=== PATIENT | female | born 1995 | race American Indian/Alaskan Native ===

== ENCOUNTER 2016-09-02 21:40 | Emergency (ER) | payer OTHER ==
[2016-09-02 21:41] VITALS: BMI 18.0
--- NOTE | 2016-09-03 00:06 | C.PDOC ---
History Of Present Illness Patient is a 21 year old female who presents to the ER with a complaint of diffuse abdominal discomfort and cramping; associated with a fever of 101 and mild nausea. Patient reports she is and has her first appoint in 2 weeks; LMP was on 07/19. Denies vaginal bleeding, vaginal discharge, vomiting, or diarrhea. Time Seen by Provider: 09/02/16 23:32 Chief Complaint (Nursing): Fever History Per: Patient History/Exam Limitations: no limitations Onset/Duration Of Symptoms: Hrs Current Symptoms Are (Timing): Still Present Location Of Pain/Discomfort: Diffuse Radiation Of Pain To:: None Quality Of Discomfort: Cramping Associated Symptoms: Nausea. denies: Vomiting, Diarrhea, Other (Vaginal discharge) Exacerbating Factors: None Alleviating Factors: None Recent travel outside of the [place]: No Abnormal Vaginal Bleeding: No Last Menstral Period: 07/19 Past Medical History Reviewed: Historical Data, Nursing Documentation, Vital Signs Vital Signs: Last Vital Signs Temp 99.2 F 09/02/16 22:27 Pulse 111 H 09/02/16 22:27 Resp 16 09/02/16 22:27 BP 111/70 09/02/16 22:27 Pulse Ox 100 09/03/16 00:11 - Medical History PMH: No Chronic Diseases Surgical History: No Surg Hx Family History: States: Unknown Family Hx - Social History Hx Alcohol Use: No Hx Substance Use: No - Immunization History Hx Tetanus Toxoid Vaccination: No Hx Influenza Vaccination: No Hx Pneumococcal Vaccination: No Review Of Systems Gastrointestinal: Positive for: Nausea, Abdominal Pain. Negative for: Vomiting , Diarrhea Genitourinary: Negative for: Vaginal Discharge, Vaginal Bleeding Physical Exam - Physical Exam Appears: Non-toxic Skin: Normal Color, Warm, Dry Head: Atraumatic, Normacephalic Oral Mucosa: Moist Chest: Symmetrical, No Tenderness Cardiovascular: Rhythm Regular, No Murmur Respiratory: Normal Breath Sounds, No Rales, No Rhonchi, No Wheezing Gastrointestinal/Abdominal: Soft, Tenderness (Mildly diffuse), No Guarding, No Rebound Neurological/Psych: Oriented x3, Normal Speech, Normal Cognition ED Course And Treatment O2 Sat by Pulse Oximetry: 100 (Room air) Pulse Ox Interpretation: Normal Interpretation Of Abnormal: Blood work, urinalysis, and transvaginal US ordered. Disposition - Disposition Disposition Time: 00:40 Condition: STABLE - Clinical Impression Clinical Impression: Abdominal pain, Fever, - Scribe Statement The provider has reviewed the documentation as recorded by the Scribe Vinicio Powers All medical record entries made by the Tangelaibe were at my direction and personally dictated by me. I have reviewed the chart and agree that the record accurately reflects my personal performance of the history, physical exam, medical decision making, and the department course for this patient. I have also personally directed, reviewed, and agree with the discharge instructions and disposition. Physician Patient Turnover Patient Signed Over To: Gopi Johnson Handoff Comments: Pending labs and ultrasound
[2016-09-03 00:46] LABS: BASO % 0.4 % (0.0-2.0); EOS # 0.2 K/uL (0.0-0.7); EOS % 1.8 % (0.0-4.0); HEMOGLOBIN 11.2 g/dL (11.0-16.0); LYMPH # 2.1 K/uL (1.0-4.3); LYMPH % 25.1 % (20.0-40.0); MEAN CELL VOLUME 76.6 fL (81.0-99.0); MEAN CORPUSCULAR HEMOGLOBIN 24.4 pg (27.0-31.0); MEAN CORPUSCULAR HGB CONC 31.9 g/dL (33.0-37.0); MEAN PLATELET VOLUME 7.7 fL (7.2-11.7); MONO # 0.7 K/uL (0.0-0.8); MONO % 8.4 % (0.0-10.0); NEUT # 5.4 K/uL (1.8-7.0); NEUT % 64.3 % (50.0-75.0); RBC 4.57 Mil/uL (3.80-5.20); RED CELL DISTRIBUTION WIDTH 14.2 % (11.5-14.5); WHITE BLOOD COUNT 8.4 K/uL (4.8-10.8)
[2016-09-03 00:48] LABS: SQUAMOUS EPITHIAL 2 /hpf (0-5); URINE BACTERIA OCC (<OCC); URINE BILIRUBIN NEGATIVE (NEGATIVE); URINE BLOOD 1+ (NEGATIVE); URINE CLARITY Clear (Clear); URINE COLOR Yellow (YELLOW); URINE GLUCOSE (UA) NORMAL (Normal); URINE LEUKOCYTE ESTERASE NEG Leu/uL (Negative); URINE NITRATE NEGATIVE (NEGATIVE); URINE PROTEIN NEGATIVE (NEGATIVE); URINE UROBILINOGEN NORMAL mg/dL (0.2-1.0)
[2016-09-03 01:19] LABS: ALBUMIN 3.7 g/dL (3.5-5.0)
[2016-09-03 01:22] LABS: ALB/GLOB RATIO 1.2 (1.0-2.1); ALT/SGPT 7 U/L (9-52); AST/SGOT 15 U/L (14-36); BLOOD UREA NITROGEN 7 mg/dL (7-17); GFR AFRICAN-AMERICAN > 60; GFR NON-AFRICAN AMERICAN > 60
[2016-09-03 01:23] LABS: CALCIUM 8.7 mg/dl (8.6-10.4)
[2016-09-03] MEDS ORDERED: Sodium Chloride 0.9% 1,000 ML IV ONE (01:26)
--- NOTE | 2016-09-03 03:18 | US ---
EXAM: US , Transvaginal CLINICAL HISTORY: 21 years old, female; Pain; complicated by abdominal or pelvic pain; Generalized abdominal pain; First trimester; Gestational age or lmp: 07/19/2016; ; Additional info: Abdominal pain and fever TECHNIQUE: Real-time transvaginal obstetrical ultrasound of the maternal pelvis and a first trimester with image documentation. Transvaginal imaging was used for better evaluation of the fetus and adnexa. EXAM DATE/TIME: 09/03/2016 2:30 AM COMPARISON: No relevant prior studies available. FINDINGS: The uterus measures 8 x 5 x 6 cm. The cervix measures 3.1 cm. There is an intrauterine gestational sac containing a yolk sac and pole. Measurements correspond to a gestational age of 7 weeks 3 days. A heart rate of 130 beats per minute was obtained. A 2 cm corpus luteum cyst is present in the maternal right ovary. The maternal left ovary is normal. Color flow and doppler vascular waveforms were demonstrated to both maternal ovaries. A small amount of free fluid is present. IMPRESSION: Single live IUP.
[2016-09-03 03:59] VITALS: BP 110/70; PULSE 82; RESP 14; TEMP 99; O2SAT 99
== END 2016-09-03 03:59 | disposition home or self-care (01) ==
LOC: C.ER 21:40
DX: O23.41 Unspecified infection of urinary tract in pregnancy, first trimester (principal); Z3A.01 Less than 8 weeks gestation of pregnancy; R50.81 Fever presenting with conditions classified elsewhere
CPT/HCPCS: 76817; 80053; 81001; 84702; 85025; 87086; 96361; 96374; 99285; J2405; J7040

== ENCOUNTER 2016-11-29 19:30 | Emergency (ER) | payer OTHER ==
[2016-11-29 19:30] VITALS: BMI 18.0
--- NOTE | 2016-11-29 20:01 | C.PDOC ---
History Of Present Illness 21 year old female who is 19 weeks , P:0 A:1, presents to the ER with a complaint of LUQ abdominal pain for the past 8 hours. Patient states prior US results show a normal ; she reports the pain is mild but she wants to make sure her baby is okay. Denies fever, chills, or vomiting. Time Seen by Provider: 11/29/16 19:43 Chief Complaint (Nursing): Abdominal Pain History Per: Patient History/Exam Limitations: no limitations Onset/Duration Of Symptoms: Hrs Current Symptoms Are (Timing): Still Present Location Of Pain/Discomfort: LUQ Radiation Of Pain To:: None Quality Of Discomfort: Unable To Describe Associated Symptoms: denies: Fever, Chills, Nausea, Vomiting Exacerbating Factors: None Alleviating Factors: None Recent travel outside of the [place]: No Abnormal Vaginal Bleeding: No : 2 Para: 0 Miscarriage: 1 Past Medical History Reviewed: Historical Data, Nursing Documentation, Vital Signs Vital Signs: Last Vital Signs Temp 98.5 F 11/29/16 19:33 Pulse 117 H 11/29/16 19:33 Resp 20 11/29/16 19:33 BP 131/73 11/29/16 19:33 Pulse Ox 100 11/29/16 20:23 - Medical History PMH: No Chronic Diseases Surgical History: Cholecystectomy Family History: States: Unknown Family Hx - Social History Hx Alcohol Use: No Hx Substance Use: No - Immunization History Hx Tetanus Toxoid Vaccination: No Hx Influenza Vaccination: No Hx Pneumococcal Vaccination: No Review Of Systems Constitutional: Negative for: Fever, Chills Gastrointestinal: Positive for: Abdominal Pain. Negative for: Nausea, Vomiting Genitourinary: Negative for: Dysuria Physical Exam - Physical Exam Appears: Non-toxic, No Acute Distress, Other (Thin black female) Skin: Normal Color, Warm, Dry Head: Atraumatic, Normacephalic Oral Mucosa: Moist Chest: Symmetrical, No Tenderness Cardiovascular: Rhythm Regular Respiratory: Normal Breath Sounds, No Rales, No Rhonchi, No Wheezing Gastrointestinal/Abdominal: Soft, No Tenderness, Other (Gravid) Pelvic: Adnexal Tenderness (Left) Neurological/Psych: Oriented x3, Normal Speech, Normal Cognition ED Course And Treatment - Laboratory Results Result Diagrams: 11/29/16 20:11 11/29/16 20:11 Lab Interpretation: Normal (ua neg., FHT 160's) O2 Sat by Pulse Oximetry: 100 (Room air) Pulse Ox Interpretation: Normal Progress Note: Blood work and urinalysis ordered. Reevaluation Time: 20:59 Reassessment Condition: Improved (belly remains benign) Medical Decision Making Medical Decision Makinnd , @ 19 wks, FHT's wnl L inguinal discomfort prob Round Ligament vs constipation normal labs/UA Disposition Doctor Will See Patient In The: Office Counseled Patient/Family Regarding: Studies Performed, Diagnosis - Disposition Disposition: HOME/ ROUTINE Disposition Time: 21:02 Condition: GOOD Forms: [employer] ([employer]) - Clinical Impression Clinical Impression: , Abdominal discomfort - Scribe Statement The provider has reviewed the documentation as recorded by the Scribe Vinicio Powers All medical record entries made by the Scribe were at my direction and personally dictated by me. I have reviewed the chart and agree that the record accurately reflects my personal performance of the history, physical exam, medical decision making, and the department course for this patient. I have also personally directed, reviewed, and agree with the discharge instructions and disposition.
[2016-11-29 20:17] LABS: RBC URINE 2 /hpf (0-3); URINE BILIRUBIN NEGATIVE (NEGATIVE); URINE COLOR Yellow (YELLOW); URINE GLUCOSE (UA) NORMAL (Normal); URINE KETONE NEGATIVE (NEGATIVE); URINE LEUKOCYTE ESTERASE NEG Leu/uL (Negative); URINE PROTEIN NEGATIVE (NEGATIVE); URINE UROBILINOGEN NORMAL mg/dL (0.2-1.0); WBC URINE 1 /hpf (0-5)
[2016-11-29 20:19] LABS: MONO # 0.6 K/uL (0.0-0.8)
[2016-11-29 20:24] LABS: BASO % 0.5 % (0.0-2.0); EOS # 0.2 K/uL (0.0-0.7); EOS % 1.8 % (0.0-4.0); HEMATOCRIT 34.3 % (34.0-47.0); LYMPH % 20.6 % (20.0-40.0); MEAN CELL VOLUME 77.3 fL (81.0-99.0); MEAN CORPUSCULAR HEMOGLOBIN 25.5 pg (27.0-31.0); MEAN CORPUSCULAR HGB CONC 32.9 g/dL (33.0-37.0); MEAN PLATELET VOLUME 8.8 fL (7.2-11.7); MONO % 6.1 % (0.0-10.0); RED CELL DISTRIBUTION WIDTH 14.3 % (11.5-14.5); WHITE BLOOD COUNT 9.9 K/uL (4.8-10.8)
[2016-11-29 20:26] LABS: URINE BLOOD 1+ (NEGATIVE)
[2016-11-29 20:35] LABS: CHLORIDE 101 mmol/L (98-107)
[2016-11-29 20:36] LABS: POTASSIUM 3.7 mmol/L (3.6-5.2); SODIUM 136 mmol/L (132-148)
[2016-11-29 20:38] LABS: ALB/GLOB RATIO 1.1 (1.0-2.1); ALKALINE PHOSPHATASE 40 U/L (38-126); ALT/SGPT 16 U/L (9-52); AST/SGOT 37 U/L (14-36); BILIRUBIN,TOTAL 1.1 mg/dL (0.2-1.3); BLOOD UREA NITROGEN 9 mg/dL (7-17); CARBON DIOXIDE 22 mmol/L (22-30); GFR AFRICAN-AMERICAN > 60; GLUCOSE,RANDOM 86 mg/dL (65-105); TOTAL PROTEIN 7.5 g/dL (6.3-8.3)
[2016-11-29 20:39] LABS: CALCIUM 9.3 mg/dl (8.6-10.4)
[2016-11-29 21:18] VITALS: BP 129/76; PULSE 85; RESP 18; TEMP 98.2; O2SAT 99
== END 2016-11-29 21:17 | disposition home or self-care (01) ==
LOC: C.ER 19:30
DX: O26.892 Other specified pregnancy related conditions, second trimester (principal); Z3A.19 19 weeks gestation of pregnancy; R10.12 Left upper quadrant pain